=== PATIENT | female | born 1980 | race Caucasian/White ===

== ENCOUNTER 2019-11-13 11:36 | Emergency (ER) | payer SELFPAY ==
--- NOTE | 2019-11-13 12:22 | RAD ---
EXAM: 2 views of the left forearm HISTORY: Forearm pain after fall COMPARISON: None FINDINGS: There is no evidence of acute fracture or dislocation. No soft tissue swelling is seen. No degenerative changes are seen in the wrist or elbow. IMPRESSION: No evidence of acute osseous abnormality.
== END 2019-11-13 12:53 | disposition home or self-care (01) ==
LOC: NAV ERS 11:36
DX: S50.12XA Contusion of left forearm, initial encounter (principal); G56.22 Lesion of ulnar nerve, left upper limb; F17.210 Nicotine dependence, cigarettes, uncomplicated; W22.8XXA Striking against or struck by other objects, initial encounter